=== PATIENT | male | born 1995 | race Caucasian/White ===

== ENCOUNTER 2023-03-13 22:59 | Emergency (ER) | payer MEDICAID, SELFPAY ==
[2023-03-13 23:07] VITALS: BP 132/67; PULSE 66; RESP 17; TEMP 37.4; O2SAT 96
--- NOTE | 2023-03-13 23:22 | ED.GENADUL_ITS ---
Discharge Plan Disposition Patient Disposition: Home Condition: Good Discharge Details Clinical Impression: Contact dermatitis Primary Care Provider: Unknown,Unknown ED Provider: Albaro Harp Home Meds and New Rx's Prescriptions: New hydrocortisone 2.5 % cream 1 applic topical BID PRNQty: 20 0RF hydroxyzine HCl 25 mg tablet 25 mg PO TID PRNQty: 30 0RF Discharge Instructions Instructions: Dermatitis (ED) Additional Instructions: At this time your symptoms are concerning for contact dermatitis, potentially from an oil-based irritation. Please wash all of your clothes in hot water with extra soap. Please apply the hydrocortisone prescription cream to the affected areas, twice daily. Please do this for the next week. Please take the hydroxyzine as needed for itching. If you notice spreading of the rash, worsening symptoms or worsening redness, we may need different type of therapy, and potential oral therapy. If these symptoms return or develop please return for reassessment. If you notice any worsening of your symptoms, or any new symptoms such as vomiting, diarrhea, fever, chills, shortness of breath, chest pain, numbness, weakness, or fainting , please return immediately to the emergency department for reevaluation. Please follow up with your primary care provider as soon as possible for reassessment and reevaluation. As always, it was a pleasure participating in your medical care today. Discharge Data Discharge Date/Time-TO BE ENTERED AT DEPARTURE: 03/13/23 23:45 Medical Decision Making 27-year-old male with no significant past medical history presents today for evaluation of rash. For the last 2 to 3 days he has developed a mild rash on the posterior aspect of his knees bilaterally. It is notably itchy. There is a small amount of weeping from the lesions. The area each and isolated. 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 He denies any significant walks in the floors, or any contact poison faian or other plants. He denies any new pets, new close, new soaps, or other components. He denies any fever or chills. No other complaints at this time. No new medications. Patient has a few isolated lesions the posterior aspect of each knee which are red, about 5 mm in diameter. There appears to be a small amount of serous fluid in each 1. No surrounding erythema. No vesicles. No papules. Negative Nikolsky sign. No large vesicles or bulla. No palpable purpura. No oral lesions. No mucosal lesions. No evidence of severe cellulitis. No evidence of vaccine preventable rash. I suspect this is related to a contact dermatitis. I suspicion is for a emollient-based oil like poison faina. Symptoms actually appear very similar to mild poison faina. Will recommend topical 2.5% hydrocortisone ointment. We will give Atarax for itching. Discussed red flags for which return. I have extensively reviewed the treatment plan and discharge instructions with the patient. I have addressed all patient concerns at this time. The patient was made aware of what symptoms to monitor for that would warrant a return to the emergency department. Discussed the plan with the patient, they demonstrate verbal understanding and agreement with our assessment and plan at this time. The documentation in this chart was dictated using [employer] dictation software. Please excuse any dictation errors. HPI General Date/Time Provider Initiated Documentation: 03/13/23 23:00 . HPI Narrative: 27-year-old male with no significant past medical history presents today for evaluation of rash. For the last 2 to 3 days he has developed a mild rash on the posterior aspect of his knees bilaterally. It is notably itchy. Th ere is a small amount of weeping from the lesions. The area each and isolated. 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 He denies any significant walks in the floors, or any contact poison faina or other plants. He denies any new pets, new close, new soaps, or other components. He denies any fever or chills. No other complaints at this time. No new medications. Related Data Home Medications Medication Instructions Recorded Confirmed hydrocortisone 2.5 % topical cream 1 applic topical BID PRN #20 grams 03/13/23 hydroxyzine HCl 25 mg tablet 25 mg PO TID PRN #30 tabs 03/13/23 Previous Rx's Medication Instructions Recorded hydrocortisone 2.5 % topical cream 1 applic topical BID PRN #20 grams 03/13/23 hydroxyzine HCl 25 mg tablet 25 mg PO TID PRN #30 tabs 03/13/23 General Stated Complaint: RashLesion CROW: 4 Review of Systems All systems reviewed & are unremarkable except as noted in HPI and below PFSH All Active Problems Contact dermatitis (Acute) Social History Smoking/Tobacco Use Status: Current every day Tobacco Type: cigarettes Smoking risk assessment performed?: Yes Alcohol Intake: current Alcohol Intake frequency: holidays/special occasions only Drug use: Never Substance use type: does not use Do you feel safe at home: Yes Do you feel safe in your relationship?: Yes Exam Narrative Exam Narrative: 1.Const: Well-nourished, Well-developed, appearing stated age 2.Eyes: PERRL, no conjunctival injection, and symmetrical lids. 3.ENT: Atraumatic external nose and ears. Moist MM. Neck: Symmetric, trachea midline, No thyromegaly. 4.CVS: +S1/S2, No murmurs or gallops. Peripheral pulses 2+ and equal in all extremities. Brisk capillary refill in all extremities. 5.RESP: Unlabored respiratory effort. Clear to auscultation bilaterally. No wheezes rales or rhonchi 6.GI: Soft, Nontender/Nondistended, No hepatosplenomegaly. No guarding or rebound. 7.MSK: Normocephalic/Atraumatic, Extremities w/o deformity or ttp No cyanosis or clubbing, Normal movement of all extremities 8.Skin: Warm, Dry. Patient has a few isolated lesions the posterior aspect of each knee which are red, about 5 mm in diameter. There appears to be a small amount of serous fluid in each 1. No surrounding erythema. No vesicles. No papules. Negative Nikolsky sign. No large vesicles or bulla. No palpable purpura. No oral lesions. No mucosal lesions. No evidence of severe cellulitis. No evidence of vaccine preventable rash. 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 Sensation grossly intact, no focal neurologic deficits. 10.Psych: (AAO) x3. Appropriate mood and affect Course Vital Signs Vital signs: Vital Signs Temperature 37.4 C 03/13/23 23:07 Pulse 66 03/13/23 23:07 Respiratory Rate 17 03/13/23 23:07 Blood Pressure 132/67 03/13/23 23:07 Pulse Oximetry 96 03/13/23 23:07 Temperature 37.4 C 03/13/23 23:07 Temperature Source Oral 03/13/23 23:07 Pulse 66 03/13/23 23:07 Respiratory Rate 17 03/13/23 23:07 Respiratory Effort Normal 03/13/23 23:09 Blood Pressure 132/67 03/13/23 23:07 Blood Pressure Position Sitting 03/13/23 23:07 Pulse Oximetry 96 03/13/23 23:07 Oxygen Delivery Method Room Air 03/13/23 23:07 Oxygen Flow Rate 0 03/13/23 23:07 Pain Level 3 03/13/23 23:07
[2023-03-13] MEDS: hydrOXYzine HCL 25 MG TAB PO (23:36)
[2023-03-13 23:39] VITALS: BP 113/74; PULSE 82; RESP 15; O2SAT 96
== END 2023-03-13 23:45 | disposition home or self-care (01) ==
PROVIDERS: Emergency Provider Student in an Organized Health Care Education/Training Program
DX: L25.9 Unspecified contact dermatitis, unspecified cause (principal)
CPT/HCPCS: 99283; 99284

== ENCOUNTER 2023-03-17 21:47 | Emergency (ER) | payer MEDICAID, SELFPAY ==
[2023-03-17 21:51] VITALS: BP 117/66; PULSE 83; RESP 18; TEMP 36.8; O2SAT 99
--- OUTSIDE RECORDS SUMMARY | 2023-03-17 21:58 | XMS_ITS | Continuity of Care Document ---
Author Name Unknown Organization [facility] Address [address] [place] [address] Care Team Providers Care Hat Renovator Name Role Phone Unavailable, Physician Primary Care Physician Un available Encounter [facility] Date(s): 09/24/22 - 09/29/22 [facility] [address] [place] [address] Encounter Diagnosis Suicidal ideation(Discharge Diagnosis) - 09/25/22 Discharge Disposition: Psychiatric Facility/Unit Attending Physician: Delmer Ledezma MD Admitting Physician: Delmer Ledezma MD Allergies, Adverse Reactions, Alerts No Known Allergies Functional Status 09/24/22 Family Member Travel History No recent t ravel Recent Travel History No recent travel Other exposure to Infectious Disease Non e Medications No Known Medications Mental Status 09/24/22 Eye Opening Response [place] Spontaneous ly Best Verbal Response [place] Oriented Best Motor Response Skye Obeys comman ds Skye Coma Score 15 Results Laboratory List Name Date SARS-CoV-2 (COVID-19) RNA (ID Now) Most recent to oldest [Reference Range]: 1 SARS-CoV-2 (COVID-19) RNA (ID Now) [Not Detected] Not Detected (09/25/22 1:33 AM) Vital Signs Most recent to oldest [Reference Range]: 1 2 3 Temperature Temporal Artery [36-38 Deg C] 36 Deg C (09/29/22 7:25 AM) 36.3 Deg C (09/26/22 10:08 AM) 37.2 Deg C (09/25/22 10:27 AM) Temperature Temporal Artery (DegF) [97.3-100 Deg F] 96.8 Deg F *LOW* (09/29/22 7:25 AM) Apical Heart Rate [60-100 bpm] 58 bpm *LOW* (09/29/22 7:25 AM) Peripheral Pulse Rate [60-100 bpm] 81 bpm (09/26/22 10:08 AM) 67 bpm (09/25/22 10:27 AM) 80 bpm (09/24/22 10:56 PM) Respiratory Rate [12-24 br/min] 20 br/min (09/29/22 7:25 AM) 18 br/min (09/26/22 10:08 AM) 16 br/min (09/25/22 10:27 AM) Blood Pressure [90-140/60-90 mmHg] 140/55mmHg (09/29/22 7:25 AM) 109/78mmHg (09/26/22 10:08 AM) 112/62mmHg (09/25/22 10:27 AM) Mean Arterial Pressure Cuff 88 mmHg (09/26/22 10:08 AM) Weight 67.10 kg (09/24/22 10:56 PM) Weight Dosing 67.10 kg (09/24/22 11:08 PM) Height 185.500 cm (09/24/22 10:56 PM) Height/Length Dosing 185.500 cm (09/24/22 11:08 PM) Body Mass Index 20.000 kg/m2 (09/24/22 10:56 PM) Social History Social History Type Response Tobacco Current everyday tob acco user Tobacco Use:. 0.5 pack/day per day. Sex Physician Emergency department Note * Raeann Chao MD: PERFORM Event Display: ED Note Physician Authored Date: [id number] MARICRUZ MOCK :1995 Age:27 years Sex:Male Visit Date:09/24/2022 Primary Care Physician: Unavailable, Physician Basic Information Time Seen: Chon Dos Santos MD / 09/25/2022 20:06 Chief Complaint SI History Of Present Illness: Gave doc to doc to Dr Iqbal from [facility] for transfer to their psychiatry service today. ?? Physical Exam Vitals & Measurements T:??36?C ??(Temporal Artery)?? HR:??58??(Apical)?? RR:??20?? BP:??140/55?? SpO2:??98%?? HT:??185.500??cm?? WT:??67.10??kg?? BMI:??20.000?? O2 Therapy:??Room air?? Procedure No Qualifying Data Assessment/Plan 1.??Suicidal ideation??R45.661 Problem List/Past Medical History Ongoing No qualifying data Historical No qualifying data Medication Administration Given nicotine 21 mg/24 hr transdermal film, extended release, 1 patches, 1 patches, 1 patches, 1 patches, 1 patches, Topical. For: Suicidal ideation nicotine 21 mg/24 hr transdermal film, extended release, 1 patches, Topical Allergies No Known Allergies Social History Alcohol Past- Comments: quit 2.5 weeks ago Electronic Cigarette/Vaping Electronic Cigarette Use: Use, within last 90 days. Substance Use Never Tobacco Current everyday tobacco user Tobacco Use:. 0.5 pack/day per day. Lab Results Infectious Disease?? LATEST RESULTS?? SARS-CoV-2 (COVID-19) RNA (ID Now)?? 09/25/22 01:33?? Not Detected? Electronically Signed on 09/29/22 02:30 PM Raeann Chao MD * Rekha Villalba MD: PERFORM Event Display: ED Note Physician Authored Date: [id number] MARICRUZ MOCK :1995 Age:27 years Sex:Male Visit Date:09/24/2022 Signout received from night ED doc.?? Patient had??SI??is here voluntarily awaiting placement.?? Mental health reports that patient had suicide attempt on Wednesday and ??they are voluntarilytrying to??place him.?? Patient without concerns??and doing well??it appears today. Electronically Signed on 09/25/22 02:19 PM Rekha Villalba MD * Chon Dos Santos MD: PERFORM Event Display: ED Note Physician Authored Date: Patient resting comfortably throughout shift. ??Patient care transferred to the [facility] daytime physician. Electronically Signed on 09/27/22 06:52 AM Chon Dos Santos MD * Monse Melo: PERFORM Event Display: ED Note Physician Authored Date: Emergency department Note * Nano Cline: PERFORM Event Display: ED Notes Authored Date: [id number] * Audra Mohr: PERFORM Event Display: ED Notes Authored Date: [id number] * Monse Melo: PERFORM Event Display: ED Notes Authored Date: Patient Care team information Care Team Personnel Name: Unavailable, Physician Position: No Access Member Role: Primary Care Physician Name: Malina Braun Position: Nurse Member Role: ED Nurse Name: Liam Malhotra MD Position: Physician Member Role: ED Physician Address: Address: [address] [place] [id number] Name: Chon Dos Santos MD Position: Physician Member Role: ED Physician Name: Emily Blackwood Position: Nurse Member Role: ED Nurse Care Team Related Persons Name: ANSELMO FIGUEROA Name: NILESH LAM
--- NOTE | 2023-03-17 22:14 | ED.GENADUL_ITS ---
Discharge Plan Disposition Patient Disposition: Home Discharge Details Clinical Impression: Rash and nonspecific skin eruption Primary Care Provider: Unknown,Unknown ED Provider: Shira Lawson Home Meds and New Rx's Prescriptions: New permethrin 5 % cream 1 applic topical ONCE Qty: 60 0RF Rx Instructions: leave on for 8 to14 hrs before washing off No Action hydrocortisone 2.5 % cream 1 applic topical BID PRNQty: 20 0RF hydroxyzine HCl 25 mg tablet 25 mg PO TID PRNQty: 30 0RF Discharge Instructions Instructions: Acute Rash (ED) Additional Instructions: Use the low metrazol antifungal up to 3 times daily as needed. Use the permethrin if the clotrimazole does not help as directed. Apply once leave on for 8 to 12 hours and wash off in the morning. Follow up with primary care provider in 3-5 days. Return to ED sooner if any worsening or concerns. Increase oral fluids. Stand Alone Forms: Work Release Medical Decision Making 27-year-old male presents to the ER for recheck of a rash. Patient was seen 3 days ago and sent home with hydrocortisone he reports that the rash has since gotten worse. He has dry scaly type rash noted to his bilateral lower extremities which she reports is itchy. He is also been taking hydroxyzine. No surrounding induration erythema or signs of infection. Denies any nausea fever or any systemic symptoms. Denies any other contacts with similar rash. We will give clotrimazole here and prescribed permethrin. Differential diagnosis includes but not limited to dermatitis, scabies, This text was generated using [employer] dictation system, please disregard any oddities of phrase or misspellings. HPI General Mode of arrival: ambulatory . Date/Time Provider Initiated Documentation: 03/17/23 21:48 . Limitations to Documentation: no limitations . Information obtained by: patient, RN notes reviewed and old records reviewed . HPI Narrative: 27-year-old male presents to the ER for recheck of a rash. Patient was seen 3 d ays ago and sent home with hydrocortisone he reports that the rash has since gotten worse. He has dry scaly type rash noted to his bilateral lower extremities which she reports is itchy. He is also been taking hydroxyzine. No surrounding induration erythema or signs of infection. Denies any nausea fever or any systemic symptoms. Denies any other contacts with similar rash. Related Data Home Medications Medication Instructions Recorded Confirmed hydrocortisone 2.5 % topical cream 1 applic topical BID PRN #20 grams 03/13/23 hydroxyzine HCl 25 mg tablet 25 mg PO TID PRN #30 tabs 03/13/23 permethrin 5 % topical cream 1 applic topical ONCE rash #60 03/17/23 grams Previous Rx's Medication Instructions Recorded hydrocortisone 2.5 % topical cream 1 applic topical BID PRN #20 grams 03/13/23 hydroxyzine HCl 25 mg tablet 25 mg PO TID PRN #30 tabs 03/13/23 permethrin 5 % topical cream 1 applic topical ONCE rash #60 03/17/23 grams Allergies Allergy/AdvReac Type Severity Reaction Status Date / Time No Known Allergies Allergy Unverified 03/17/23 21:56 General Stated Complaint: Recheck CROW: 3 Review of Systems All systems reviewed & are unremarkable except as noted in HPI and below Integumentary/Breasts Skin/Breast: Reports pruritus and Reports rash PFSH All Active Problems (Updated 03/17/23 @ 22:23 by Shira Lawson NP) Contact dermatitis (Acute) Rash and nonspecific skin eruption (Acute) Social History Smoking/Tobacco Use Status: Current every day Tobacco Type: cigarettes Smoking risk assessment performed?: Yes Alcohol Intake: current Alcohol Intake frequency: holidays/special occasions only Drug use: Never Substance use type: does not use Do you feel safe at home: Yes Do you feel safe in your relationship?: Yes Exam Skin General skin exam: no erythema and excoriation Rashes: rashes noted plaques bilateral lower lower leg arrangement confluent, borders irregular, color red and surface rough Full body images: 1. Scattered lesions noted itchy, excoriations dry surface, clustered confluent with irregular borders. No induration no surrounding erythema or signs of infection. Course Vital Signs Vital signs: Vital Signs Temperature 36.8 C 03/17/23 21:51 Pulse 83 03/17/23 21:51 Respiratory Rate 18 03/17/23 21:51 Blood Pressure 117/66 03/17/23 21:51 Pulse Oximetry 99 03/17/23 21:51 Temperature 36.8 C 03/17/23 21:51 Temperature Source Skin 03/17/23 21:51 Pulse 83 03/17/23 21:51 Respiratory Rate 18 03/17/23 21:51 Respiratory Effort Normal 03/17/23 21:55 Blood Pressure 117/66 03/17/23 21:51 Blood Pressure Position Sitting 03/17/23 21:51 Pulse Oximetry 99 03/17/23 21:51 Oxygen Delivery Method Room Air 03/17/23 21:51 Oxygen Flow Rate 0 03/17/23 21:51
[2023-03-17] MEDS: Clotrimazole 1% 15 GM TUBE TP (22:59)
== END 2023-03-17 22:57 | disposition home or self-care (01) ==
PROVIDERS: Emergency Provider Registered Nurse Emergency
DX: R21 Rash and other nonspecific skin eruption (principal)
CPT/HCPCS: 99283

== ENCOUNTER 2023-04-11 21:35 | Emergency (ER) | payer MEDICAID, SELFPAY ==
[2023-04-11 21:37] VITALS: BP 118/67; PULSE 101; RESP 18; TEMP 37.3; O2SAT 95
[2023-04-11 22:10] LABS: Bilirubin Negative (Negative); Blood Negative (Negative); Clarity Clear (Clear); Glucose Negative (Negative); Ketones Negative (Negative); Leukocyte Esterase Negative (Negative); Nitrite Negative (Negative); Specific Gravity 1.015 (1.005-1.025)
[2023-04-11 22:40] LABS: COVID-19 PCR Negative (Negative); Influenza A PCR Negative (Negative); Influenza B PCR Negative (Negative); RSV PCR Negative (Negative)
[2023-04-11] MEDS: Ibuprofen 800 MG TAB PO (22:46)
--- NOTE | 2023-04-11 22:59 | W.ED.GENAD ---
Discharge Plan Disposition Patient Disposition: Home Condition: Good Discharge Details Clinical Impression: URI (upper respiratory infection), Sacroiliitis Primary Care Provider: Terri Calloway ED Provider: Albaro Harp Home Meds and New Rx's Prescriptions: New prednisone 50 mg tablet 50 mg PO DAILY Qty: 5 0RF No Action hydrocortisone 2.5 % cream 1 applic topical BID PRNQty: 20 0RF hydroxyzine HCl 25 mg tablet 25 mg PO TID PRNQty: 30 0RF permethrin 5 % cream 1 applic topical ONCE Qty: 60 0RF Rx Instructions: leave on for 8 to14 hrs before washing off Discharge Instructions Instructions: Upper Respiratory Infection (ED), Sacroiliitis (ED) Additional Instructions: At this time you have evidence of a upper respiratory infection. Your strep test was negative. I suspect it is a viral etiology. In addition to this you have evidence of sacroiliitis and mild sciatica. Please take the steroid as directed. It is been sent to your pharmacy on file. In addition to this please alternate between Tylenol and Motrin as needed for pain. Avoid any significant heavy lifting, and take time off as needed to recover. If you notice any worsening of your symptoms, or any new symptoms such as vomiting, diarrhea, fever, chills, shortness of breath, chest pain, numbness, weakness, or fainting , please return immediately to the emergency department for reevaluation. Please follow up with your primary care provider as soon as possible for reassessment and reevaluation. As always, it was a pleasure participating in your medical care today. Stand Alone Forms: Work Release Referrals: Terri Calloway [Primary Care Provider] - Medical Decision Making 28-year-old male with no significant past medical history presents today for evaluation of sore throat for the last 3 days. Additionally he has some complaints of right lower back pain for the last 2 months intermittently, worse with activity and movement. 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 He denies chest pain or shortness of breath. He denies IV or illicit drug use. He denies any other complaints at this time. He denies any significant headache or neck stiffness. Patient did take Tylenol and Motrin at home, and this did improve his hip and throat pain. He regularly takes Tylenol and Motrin over the last few months for the back pain and this often usually improves it as well. Exam demonstrates a well-appearing male, moderate erythema in the posterior oropharynx, mild cervical lymphadenopathy. No nuchal rigidity or neck stiffness. Symptoms inconsistent with meningitis. No tonsillitis. Strep/COVID/flu/RSV were negative. Suspect viral upper respiratory infection as the cause of those symptoms. Patient does have a mildly elevated temperature here. Regards to the patient's back, no midline tenderness, he does have mild pain over the SI joint. No pain at the hip with range of motion. No redness, warmth, swelling, or edema to suggest infection. No pain out of proportion. Symptoms are clinically inconsistent at this time with a septic joint based on the physical exam, clinical history of pain over the last 2 months, and chronicity of the symptoms. Suspect mild sacroiliitis secondary to his work and use based on current exam and assessment. Will recommend continued NSAIDs, prednisone burst, and avoidance of work for the next few days. I also discussed with the patient the importance of close follow-up and return if any of his symptoms worsen or progress and do not improve. Recommend supportive therapy for his URI. No clinical evidence of meningitis or other concerning abnormality otherwise at this time. I have extensively reviewed the treatment plan and discharge instructions with the patient. I have addressed all patient concerns at this time. The patient was made aware of what symptoms to monitor for that would warrant a return to the emergency department. Discussed the plan with the patient, they demonstrate verbal understanding and agreement with our assessment and plan at this time. The documentation in this chart was dictated using [employer] dictation software. Please excuse any dictation errors. HPI General Date/Time Provider Initiated Documentation: 04/11/23 21:45. HPI Narrative: 28-year-old male with no significant past medical history presents today for evaluation of sore throat for the last 3 days. Additionally he has some complaints of right lower back pain for the last 2 months intermittently, worse with activity and movement. 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 He denies chest pain or shortness of breath. He denies IV or illicit drug use. He denies any other complaints at this time. He denies any significant headache or neck stiffness. Patient did take Tylenol and Motrin at home, and this did improve his hip and throat pain. He regularly takes Tylenol and Motrin over the last few months for the back pain and this often usually improves it as well. Related Data Home Medications Medication Instructions Recorded Confirmed hydrocortisone 2.5 % topical cream 1 applic topical BID PRN #20 grams 03/13/23 hydroxyzine HCl 25 mg tablet 25 mg PO TID PRN #30 tabs 03/13/23 permethrin 5 % topical cream 1 applic topical ONCE rash #60 03/17/23 grams prednisone 50 mg tablet 50 mg PO DAILY #5 tabs 04/11/23 Previous Rx's Medication Instructions Recorded hydrocortisone 2.5 % topical cream 1 applic topical BID PRN #20 grams 03/13/23 hydroxyzine HCl 25 mg tablet 25 mg PO TID PRN #30 tabs 03/13/23 permethrin 5 % topical cream 1 applic topical ONCE rash #60 03/17/23 grams prednisone 50 mg tablet 50 mg PO DAILY #5 tabs 04/11/23 Allergies Allergy/AdvReac Type Severity Reaction Status Date / Time No Known Allergies Allergy Unverified 03/17/23 21:56 General Stated Complaint: Sorethroat CROW: 4 Review of Systems All systems reviewed & are unremarkable except as noted in HPI and below PFSH All Active Problems Contact dermatitis (Acute) Rash and nonspecific skin eruption (Acute) URI (upper respiratory infection) (Acute) Sacroiliitis (Acute) Social History Smoking/Tobacco Use Status: Current every day Tobacco Type: cigarettes Smoking risk assessment performed?: Yes Alcohol Intake: current Alcohol Intake frequency: holidays/special occasions only Drug use: Never Substance use type: does not use Do you feel safe at home: Yes Do you feel safe in your relationship?: Yes Exam Narrative Exam Narrative: 1.Const: Well-nourished, Well-developed, appearing stated age 2.Eyes: PERRL, no conjunctival injection, and symmetrical lids. 3.ENT: Atraumatic external nose and ears. Moist MM. Neck: Symmetric, trachea midline, No thyromegaly. Moderate erythema in the posterior oropharynx. No tonsillar enlargement. No lesions or plaques. 4.CVS: +S1/S2, No murmurs or gallops. Peripheral pulses 2+ and equal in all extremities. Brisk capillary refill in all extremities. 5.RESP: Unlabored respiratory effort. Clear to auscultation bilaterally. No wheezes rales or rhonchi 6.GI: Soft, Nontender/Nondistended, No hepatosplenomegaly. No guarding or rebound. 7.MSK: Normocephalic/Atraumatic, Extremities w/o deformity or ttp No cyanosis or clubbing, Normal movement of all extremities. No midline cervical thoracic or lumbar spine tenderness. Negative straight leg raise bilaterally. Mild reproducible tenderness over the right SI joint. No redness, warmth, or edema to suggest infection. No pain out of proportion or significant pain at all with movement of the hip. 8.Skin: Warm, Dry. No rashes or lesions. 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 Sensation grossly intact, no focal neurologic deficits. 10.Psych: (AAO) x3. Appropriate mood and affect Course Vital Signs Vital signs: Vital Signs Temperature 37.3 C 04/11/23 21:37 Pulse 101 H 04/11/23 21:37 Respiratory Rate 18 04/11/23 21:37 Blood Pressure 118/67 04/11/23 21:37 Pulse Oximetry 95 04/11/23 21:37 Temperature 37.3 C 04/11/23 21:37 Temperature Source Tympanic 04/11/23 21:37 Pulse 101 H 04/11/23 21:37 Respiratory Rate 18 04/11/23 21:37 Respiratory Effort Normal 04/11/23 21:41 Blood Pressure 118/67 04/11/23 21:37 Pulse Oximetry 95 04/11/23 21:37 Oxygen Delivery Method Room Air 04/11/23 21:37 Oxygen Flow Rate 0 04/11/23 21:37 Pain Level 8 04/11/23 21:37 Lab/Test Results Lab/Test Results: 04/11/23 20:50 Tonsil - Right Group A Streptococcus Culture - Pending Laboratory Tests Range/Units 04/11/23 22:00 Urine Color (Yellow) Yellow Urine Clarity (Clear) Clear Urine pH (5-8) 7.0 Ur Specific [place] (1.005-1.025) 1.015 Urine Protein (Negative) mg/dL Negative Urine Ketones (Negative) mg/dL Negative Urine Blood (Negative) Negative Urine Nitrite (Negative) Negative Urine Bilirubin (Negative) Negative Urine Urobilinogen (Up to 0.2) mg/dL 1.0 H Ur Leukocyte Esterase (Negative) Negative Urine Glucose (Negative) mg/dL Negative POC Strep Test-FARHAT(Rapid) Start: 04/11/23 21:52 Freq: .Rapid Strep Test Status: Active Protocol: Document 04/11/23 21:59 BARNEY (Rec: 04/11/23 21:59 BARNEY [id number]) Strep test-FARHAT(Rapid)-POC POC-Strep test-FARHAT (Rapid) Negative POC-Strep test-FARHAT (Rapid) Negative
[2023-04-11 23:00] LABS: Source Nasopharynx
[2023-04-11 23:20] VITALS: BP 121/74; PULSE 97; RESP 20; TEMP 38.8; O2SAT 96
== END 2023-04-11 23:34 | disposition home or self-care (01) ==
PROVIDERS: Emergency Provider Student in an Organized Health Care Education/Training Program; PCP Nurse Practitioner Family
DX: J06.9 Acute upper respiratory infection, unspecified (principal); M46.1 Sacroiliitis, not elsewhere classified
CPT/HCPCS: 87637; 99283; 81003; 87081

== ENCOUNTER 2023-04-18 22:44 | Emergency (ER) | payer MEDICAID, SELFPAY ==
[2023-04-18 22:49] VITALS: BP 125/87; PULSE 90; RESP 16; TEMP 36.8; O2SAT 99
--- NOTE | 2023-04-18 22:56 | W.ED.GENAD ---
Discharge Plan Disposition Patient Disposition: Home Discharge Details Clinical Impression: Pain, dental Primary Care Provider: Terri Calloway ED Provider: Albaro Harp Home Meds and New Rx's Prescriptions: New amoxicillin 500 mg capsule 500 mg PO TID 5 Days Qty: 15 0RF Discharge Instructions Instructions: Toothache (ED) Additional Instructions: Please take 800 mg of ibuprofen every 6 hours and 1000 mg of Tylenol every 6 hours to help with the inflammation and pain. These are the maximum doses. Please take the antibiotic as directed to help with the infection in your tooth. Please use the dental list that we have provided to contact the dentist for prompt follow-up and evaluation for tooth removal. If you notice any worsening of your symptoms, or any new symptoms such as difficulty swallowing, difficulty breathing, vomiting, diarrhea, fever, chills, shortness of breath, chest pain, numbness, weakness, or fainting , please return immediately to the emergency department for reevaluation. Please follow up with your primary care provider as soon as possible for reassessment and reevaluation. As always, it was a pleasure participating in your medical care today. Referrals: Terri Calloway [Primary Care Provider] - Medical Decision Making 28-year-old male presents today for evaluation of right lower dental pain. Patient states that for the last 3 to 5 days he has had mild ache in the right lower jaw, which has been worsening over the last few days. He has known dental caries in that area. He has been taking Tylenol which only slightly improved the pain. Denies headache. He does not have a dentist. He denies any other complaints at this time. It is made worse with chewing. Improved by nothing. He denies any significant swelling. No difficulty swallowing. Physical exam demonstrates notable dental carry the right posterior inferior molar. No periapical abscess. No evidence of Ludewig's angina, or other abnormality. No carotid bruit. No meningeal signs. Patient otherwise looks clinically well. Symptoms at this time appear consistent with mild dental caries. We will give a gram of amoxicillin now, and 500 3 times daily. Will recommend continued NSAIDs. Patient refused dental block. Discussed red flags for which to return. Will give dental sheet for home use. I have extensively reviewed the treatment plan and discharge instructions with the patient. I have addressed all patient concerns at this time. The patient was made aware of what symptoms to monitor for that would warrant a return to the emergency department. Discussed the plan with the patient, they demonstrate verbal understanding and agreement with our assessment and plan at this time. The documentation in this chart was dictated using [employer] dictation software. Please excuse any dictation errors. HPI General Date/Time Provider Initiated Documentation: 04/18/23 22:47. HPI Narrative: 28-year-old male presents today for evaluation of right lower dental pain. Patient states that for the last 3 to 5 days he has had mild ache in the right lower jaw, which has been worsening over the last few days. He has known dental caries in that area. He has been taking Tylenol which only slightly improved the pain. Denies headache. He does not have a dentist. He denies any other complaints at this time. It is made worse with chewing. Improved by nothing. He denies any significant swelling. No difficulty swallowing. Related Data Home Medications Medication Instructions Recorded Confirmed amoxicillin 500 mg capsule 500 mg PO TID 5 days #15 caps 04/18/23 Previous Rx's Medication Instructions Recorded amoxicillin 500 mg capsule 500 mg PO TID 5 days #15 caps 04/18/23 Allergies Allergy/AdvReac Type Severity Reaction Status Date / Time No Known Allergies Allergy Unverified 04/18/23 22:55 General Stated Complaint: DentalOral CROW: 4 Review of Systems All systems reviewed & are unremarkable except as noted in HPI and below PFSH All Active Problems URI (upper respiratory infection) (Acute) Sacroiliitis (Acute) Pain, dental (Acute) Social History Smoking/Tobacco Use Status: Current every day Tobacco Type: cigarettes Smoking risk assessment performed?: Yes Alcohol Intake: current Alcohol Intake frequency: holidays/special occasions only Drug use: Never Substance use type: does not use Do you feel safe at home: Yes Do you feel safe in your relationship?: Yes Exam Narrative Exam Narrative: 1.Const: Well-nourished, Well-developed, appearing stated age 2.Eyes: PERRL, no conjunctival injection, and symmetrical lids. 3.ENT: Atraumatic external nose and ears. Moist MM. Neck: Symmetric, trachea midline, No thyromegaly. Multiple dental caries, notable severe dental carry in the right posterior inferior molar which is the location of the patient's pain. No periapical abscess. No evidence of Ludewig's angina. No evidence of airway compromise whatsoever. 4.CVS: +S1/S2, No murmurs or gallops. Peripheral pulses 2+ and equal in all extremities. Brisk capillary refill in all extremities. 5.RESP: Unlabored respiratory effort. Clear to auscultation bilaterally. No wheezes rales or rhonchi 6.GI: Soft, Nontender/Nondistended, No hepatosplenomegaly. No guarding or rebound. 7.MSK: Normocephalic/Atraumatic, Extremities w/o deformity or ttp No cyanosis or clubbing, Normal movement of all extremities 8.Skin: Warm, Dry. No rashes or lesions. 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 Sensation grossly intact, no focal neurologic deficits. 10.Psych: (AAO) x3. Appropriate mood and affect Course Vital Signs Vital signs: Vital Signs Temperature 36.8 C 04/18/23 22:49 Pulse 90 04/18/23 22:49 Respiratory Rate 16 04/18/23 22:49 Blood Pressure 125/87 04/18/23 22:49 Pulse Oximetry 99 04/18/23 22:49 Temperature 36.8 C 04/18/23 22:49 Temperature Source Temporal Artery Scan 04/18/23 22:49 Pulse 90 04/18/23 22:49 Respiratory Rate 16 04/18/23 22:49 Respiratory Effort Normal 04/18/23 22:49 Blood Pressure 125/87 04/18/23 22:49 Blood Pressure Position Sitting 04/18/23 22:49 Pulse Oximetry 99 04/18/23 22:49 Oxygen Delivery Method Room Air 04/18/23 22:49 Oxygen Flow Rate 0 04/18/23 22:49
== END 2023-04-18 23:06 | disposition home or self-care (01) ==
PROVIDERS: Emergency Provider Student in an Organized Health Care Education/Training Program; PCP Nurse Practitioner Family
DX: R68.84 Jaw pain (principal)
CPT/HCPCS: 99283